=== PATIENT | female | born 1985 | race Caucasian/White ===

== ENCOUNTER 2017-02-28 17:48 | Inpatient (IN) | payer MEDICAID ==
[~2017-02-28] VITALS: Ht 165.1 cm; Wt 96.7 kg
--- NOTE | ~2017-02-28 | ER ---
PATIENT'S NAME: ROBERT [facility] AGE: 31 Y [address] ROOM: [place] [address] LOCATION: [facility] ADMIT DATE: 02/28/2017 ER/Outpatient Report DISCHARGE DATE: FAMILY PHYSICIAN: PHYSICIAN, NO ATTENDING PHYSICIAN: Gee Reina Time of Arrival: 1748 hours. Time of Evaluation: 1815 hours. IDENTIFICATION: A 31-year-old female. CHIEF COMPLAINT: Shortness of breath. HISTORY OF PRESENT ILLNESS: The patient is a 31-year-old female, G7, P4 at 35 weeks gestation with an EDC of 04/02/2017. She had 3 normal vaginal deliveries and 1 section. She was just recently hospitalized Thursday through at [facility] for a DVT right lower extremity, treated with subcu heparin in the hospital and then initiated on Lovenox Thursday morning outpatient 30 mg b.i.d. The patient had an episode of dizziness 30 minutes prior to arrival. She has had increasing shortness of breath the past 4 hours and has had chest pain intermittently x2 in the last hour. Currently, she denies any chest pain. PAST MEDICAL HISTORY: ALLERGIES: PENICILLIN. CURRENT MEDICATIONS: 1. Lovenox 30 mg subcu b.i.d. initiated Thursday. 2. vitamin daily. 3. Folic acid daily. 4. Benadryl 25 mg p.r.n. sleep. 5. Enbrel 50 mg subcu weekly. MEDICAL PROBLEMS: Rheumatoid arthritis. PRIOR SURGERIES: section, cholecystectomy. OB HISTORY: As noted above. PATIENT'S NAME: ROBERT [facility] AGE: 31 Y [address] ROOM: [place] [address] LOCATION: [facility] ADMIT DATE: 02/28/2017 ER/Outpatient Report DISCHARGE DATE: FAMILY PHYSICIAN: PHYSICIAN, NO ATTENDING PHYSICIAN: Gee Reina SOCIAL HISTORY: The patient lives here in [place]. She is currently unemployed. Tobacco use: Denies. Alcohol use: Denies. Drug use: Denies. REVIEW OF SYSTEMS: All systems reviewed and negative other than what is noted in the HPI. Other than she has had increasing pain in her right lower extremity. Baby is active. No bleeding or contractions. PHYSICAL EXAMINATION: VITAL SIGNS: Weight 96.7 kg. Blood pressure 146/73, pulse 99, respirations 16, temperature 98.5, saturations 96% on room air. heart tones 140. GENERAL: A 31-year-old female, in no acute distress. HEENT: Head: Normocephalic, atraumatic. Ears: TMs translucent both ears. Nose: Mucosa erythematous and congested. No drainage. No sinus tenderness. Mouth: No lesions. Pharynx benign. NECK: Supple. No lymphadenopathy. No nuchal rigidity. LUNGS: Clear to auscultation. HEART: Regular rate and rhythm. No murmur, rub, or gallop. ABDOMEN: Intrauterine at 35 weeks gestation, nontender. EXTREMITIES: She does have right lower extremity tenderness and swelling. No erythema. DIAGNOSTIC STUDIES: EKG sinus rhythm at 98 beats per minute. No acute ST elevation or depression. She does have a Q-wave in lead III and slight T-wave inversion in lead III. Hemoglobin 12.6, hematocrit 37.3, platelets 150, white count 10.4, INR 0.89, PTT 26. Sodium 141, potassium 3.6, chloride 109, CO2 20, BUN 11, creatinine 0.5, blood sugar 104, liver enzymes normal. EMERGENCY ROOM COURSE: CT PE protocol, I discussed this case with Dr. Reina, DIRECTOR OF HOUSING on-call to get his okay for a CT PE protocol. He was okay with this. CT PE protocol was suboptimal, cannot adequately evaluate for the possibility of pulmonary embolus. I again discussed with Dr. Reina and Dr. Friedman. Dr. Reina will provide admission with Dr. Friedman providing consultation for anticoagulation. Records were reviewed from [facility] dated 02/24/2017. IMPRESSION: 1. Right deep venous thrombosis. 2. Shortness of breath with possible pulmonary embolus. 3. Intrauterine at 35 weeks gestation. PATIENT'S NAME: CASSANDRA JONES [facility] AGE: 31 Y [address] ROOM: [address] [place], [place] [address] LOCATION: [facility] ADMIT DATE: 02/28/2017 ER/Outpatient Report DISCHARGE DATE: FAMILY PHYSICIAN: PHYSICIAN, NO ATTENDING PHYSICIAN: Gee Reina PLAN: The initial plan was for 1 mg/kg of subcu Lovenox to be given per Dr. Friedman. However, he did call back and cancel that order and requested that we wait for further orders from him. The patient was subsequently taken to the floor for Dr. Reina and did not receive Lovenox here in the emergency room at Dr. Friedman's request. Further anticoagulation dosing per Dr. Riena and Dr. Friedman. DEBRA HAYES MD CAR/kital /[id number] d: 03/01/17 0111 t: 03/01/17 0344, OUTPATIENT REPORT
--- NOTE | ~2017-02-28 | HP ---
[facility] 31 [facility] [address] ROOM: [place] [address] LOCATION: [facility] ADMIT DATE: 02/28/2017 History & Physical DISCHARGE DATE: FAMILY PHYSICIAN: WILLAM MOLINA ATTENDING PHYSICIAN: Asha Reina DATE OF SERVICE: CHIEF COMPLAINT: Right leg pain and shortness of breath, third trimester . HISTORY OF PRESENT ILLNESS: Cassandra Collins is a 31-year-old, single white female, 7 para 4 at 35 and 1/2 weeks gestational age who presented to the emergency room with complaints of shortness of breath. The patient had been admitted earlier this week at [facility] (EDC 02/24/2017 through 02/26/2017) with a DVT. She had right- sided leg pain and an ultrasound showed noncompressible popliteal vein consistent with right-sided DVT. She was initially treated with heparin and later switched to Lovenox, current dose is 30 mg b.i.d. She earlier today developed worsening right-sided pain and shortly before she presented to the emergency room, she developed shortness of breath. Upon arrival to the emergency room, her laboratory studies were satisfactory. Her oxygen saturation studies were also satisfactory. However, she has rather prominent pain in the right leg behind the knee in the general area previously diagnosed with DVT. She has the shortness of breath. Although, she does not have the tachycardia or the O2 saturation changes. A CT scan with PE protocol was inconclusive and discussion was carried forth with the patient regarding a V-Q scan for definitive diagnosis. PAST MEDICAL HISTORY: The patient is G7, P4. She has 2 first-trimester losses, 1 spontaneous miscarriage, 1 elective . She has 4 deliveries, 3 vaginal deliveries and the last delivery was by section. Newly diagnosed of rheumatoid arthritis. Past history of PTSD and anxiety. CURRENT MEDICATIONS: 1. Enbrel. 2. Lovenox. 3. vitamin. 4. Folic acid. 5. Benadryl. FAMILY HISTORY: Please see . [facility] 31 [facility] [address] ROOM: [place] [address] LOCATION: [facility] ADMIT DATE: 02/28/2017 History & Physical DISCHARGE DATE: FAMILY PHYSICIAN: PHYSICIAN, NO ATTENDING PHYSICIAN: Asha Reina SOCIAL HISTORY: Please see . The patient is a nonsmoker. No alcohol consumption. REVIEW OF SYSTEMS: Negative except for as stated above. PHYSICAL EXAMINATION: VITAL SIGNS: Afebrile. Vital signs stable, 208 pounds which is 94 kg. GENERAL: Well-developed, well-nourished white female who appears stated age. Some distress related to the pain in the right leg. Alert and oriented x3. HEENT: Grossly normal. LUNGS: Clear to auscultation. Breath sounds throughout the entire lung antony. HEART: Regular rate and rhythm without murmur. ABDOMEN: Obviously gravid. Positive bowel sounds. EXTREMITIES: Shows the left leg to be normal. The right leg to have pain in the right popliteal area. No swelling or discoloration of the distal extremity. NEUROLOGIC: Grossly normal. IMPRESSION: A 31-year-old multigravida female at 35 and 1/2 weeks gestational age with a worsening deep vein thrombosis and high probability of a PE. The CT with PE protocol was inconclusive. We discussed the followup of radiologic studies and confirmed the diagnosis. We are recommending the V-Q scans to definitively assign the diagnosis. PLAN: Proceed to V-Q scan, increase Lovenox to 90 mg twice daily (1 mg/kg b.i.d.). ASHA REINA MD DHW/modl /[id number] D: [id number] T: [id number] HISTORY & PHYSICAL
[2017-02-28 18:46] LABS: BASOPHIL % 0.3 %; EOSINOPHIL # 0.1 K/uL (0.0-0.5); EOSINOPHIL % 0.7 %; HEMATOCRIT 37.3 % (33.0-46.0); HEMOGLOBIN 12.6 g/dL (11.0-15.0); IMMATURE GRANULOCYTE # 0.1 K/uL (0.0-0.3); LYMPHOCYTE # 1.9 K/uL (0.8-4.0); LYMPHOCYTE % 18.6 %; MCH 30.4 pg (27.0-34.0); MCHC 33.8 gm/dL (32.0-36.5); MCV 89.9 fl (83.0-98.0); MONOCYTE # 0.6 K/uL (0.0-1.0); MONOCYTE % 5.3 %; MPV 11.7 fl (9.4-12.4); NEUTROPHIL # (ANC) 7.8 K/uL (1.8-7.8); NEUTROPHIL % 74.1 %; NRBC % 0 /100WBC (0-0.00); PLATELET COUNT 150 K/uL (150-450); RBC 4.15 M/uL (3.50-5.50); RDW-CV 13.8 % (11.9-14.6); WBC 10.4 K/uL (4.0-11.0)
[2017-02-28 18:58] LABS: INR - (THERAPEUTIC) 0.89 (0.92-1.07); PROTIME 9.3 SECONDS (9.8-11.4); PTT 26 SECONDS (25-32)
[2017-02-28 19:05] LABS: ALBUMIN 2.7 gm/dL (3.5-5.0); ALK PHOS 123 IU/L (33-138); ALT 40 IU/L (12-78); ANION GAP 15.6 (10.0-19.0); AST 31 IU/L (10-40); BLOOD UREA NITROGEN 11 mg/dL (6-24); CALCIUM 9.3 mg/dL (8.5-10.5); CHLORIDE 109 mMol/L (96-110); CO2 20 mMol/L (22-32); CREATININE 0.5 mg/dL (0.5-1.1); ESTIMATED GFR (MDRD EQUATION) > 60; POTASSIUM 3.6 mMol/L (3.7-5.1); SODIUM 141 mMol/L (135-145); TOTAL BILIRUBIN 0.3 mg/dL (0.0-1.5); TOTAL PROTEIN 6.8 g/dL (6.0-8.4)
[2017-02-28] MEDS ORDERED: PRENATAL 1+1)(P1 TAB PO (23:09)
[2017-02-28] MEDS ORDERED: LOVENOX 3030 MG/0.3 SUB-Q (23:09)
[2017-02-28] MEDS ORDERED: FOLIC ACID1 MG PO (23:10)
[2017-02-28] MEDS ORDERED: BENADRYL25 MG PO (23:11)
[2017-02-28] MEDS ORDERED: ENBREL50 MG/1 M1 SUB-Q (23:13)
[2017-03-01 05:13] LABS: BASOPHIL % 0.4 %; EOSINOPHIL # 0.1 K/uL (0.0-0.5); EOSINOPHIL % 1.2 %; HEMATOCRIT 33.8 % (33.0-46.0); HEMOGLOBIN 11.3 g/dL (11.0-15.0); IMMATURE GRANULOCYTE # 0.1 K/uL (0.0-0.3); IMMATURE GRANULOCYTE % 1.5 %; LYMPHOCYTE # 2.4 K/uL (0.8-4.0); MCH 30.5 pg (27.0-34.0); MCHC 33.4 gm/dL (32.0-36.5); MCV 91.1 fl (83.0-98.0); MONOCYTE # 0.6 K/uL (0.0-1.0); MONOCYTE % 6.4 %; MPV 11.7 fl (9.4-12.4); NEUTROPHIL # (ANC) 6.3 K/uL (1.8-7.8); NEUTROPHIL % 65.5 %; NRBC % 0 /100WBC (0-0.00); PLATELET COUNT 125 K/uL (150-450); RBC 3.71 M/uL (3.50-5.50); RDW-CV 13.8 % (11.9-14.6); WBC 9.6 K/uL (4.0-11.0)
[2017-03-01 05:23] LABS: PROTIME 9.4 SECONDS (9.8-11.4); PTT 29 SECONDS (25-32)
[2017-03-01 05:30] LABS: ALBUMIN 2.4 gm/dL (3.5-5.0); ALK PHOS 106 IU/L (33-138); ALT 36 IU/L (12-78); ANION GAP 16.4 (10.0-19.0); AST 32 IU/L (10-40); BLOOD UREA NITROGEN 10 mg/dL (6-24); CALCIUM 8.7 mg/dL (8.5-10.5); CHLORIDE 108 mMol/L (96-110); CO2 20 mMol/L (22-32); CREATININE 0.5 mg/dL (0.5-1.1); ESTIMATED GFR (MDRD EQUATION) > 60; POTASSIUM 3.4 mMol/L (3.7-5.1); SODIUM 141 mMol/L (135-145); TOTAL BILIRUBIN 0.4 mg/dL (0.0-1.5); TOTAL PROTEIN 5.9 g/dL (6.0-8.4)
--- NOTE | 2017-03-02 04:04 | NUR ---
Last VS: T: P: R: 16 BP: Pain rating: . Last pain med: NORCO Medicated at: 2100 Effective: YES FHT: Dilatation: Effacement %: Station: Significant event: PT RECEIVES 90 MG LOVENOX BID. TOOK SHOWER LAST NIGHT BEFORE HS TO ALLEVIATE LEG PAIN. TOOK 10 MG AMBIEN, PT SLEPT.
[2017-03-02] MEDS ORDERED: LOVENOX 10100 MG/1 M SUB-Q (07:23)
== END 2017-03-02 11:45 | disposition disaster alternative care site (69) | DRG 782 ==
LOC: GMED 17:48 → GOBS 21:47
PROVIDERS: Family Medicine; ADMIT Obstetrics & Gynecology
DX: O22.33 Deep phlebothrombosis in pregnancy, third trimester (principal); I82.431 Acute embolism and thrombosis of right popliteal vein; Z79.01 Long term (current) use of anticoagulants; Z3A.35 35 weeks gestation of pregnancy
CPT/HCPCS: A9540; G0463; J1650; J7040; Q9967

== ENCOUNTER 2017-03-25 10:14 | Emergency (ER) | payer MEDICAID ==
--- NOTE | ~2017-03-25 | ER ---
PATIENT'S NAME: ROBERT [facility] AGE: 31 Y [address] ROOM: [place] [address] LOCATION: [facility] ADMIT DATE: 03/25/2017 ER/Outpatient Report DISCHARGE DATE: 03/25/2017 FAMILY PHYSICIAN: PHYSICIAN, NO ATTENDING PHYSICIAN: Vanessa Obrien TIME OF ARRIVAL: 10:14. TIME SEEN: 10:57. IDENTIFICATION: A 31-year-old, G7, P4, at 39 weeks' gestation. The patient has had three normal vaginal deliveries and one section. She has seen Dr. Emerson in [place] and is scheduled for induction of on Thursday in 2 days. The patient was diagnosed with a DVT in the latter part of February at [facility]. She was then evaluated after that here at [facility]. Please refer to that dictation. She has been on Lovenox b.i.d. 90 mg and today had left hand swelling and pain, and pain between her shoulder blades and her right posterior chest, worse with any movement or breathing, no fall or injury. Baby is active. No vaginal bleeding. No leaking of fluid. ALLERGIES: PENICILLIN. CURRENT MEDICATIONS: 1. Tylenol 1000 mg p.r.n. 2. Lovenox 90 mg subcu b.i.d. 3. vitamin daily. 4. Enbrel 50 mg weekly. 5. Folic acid daily. MEDICAL PROBLEMS: 1. Rheumatoid arthritis. 2. Previous DVT. PRIOR SURGERIES: section and cholecystectomy. SOCIAL HISTORY: The patient lives here in [place]. Tobacco use: Denies. Alcohol use: Denies. Drug use: Denies. REVIEW OF SYSTEMS: [facility] 31 Y [address] ROOM: [place] [address] LOCATION: [facility] ADMIT DATE: 03/25/2017 ER/Outpatient Report DISCHARGE DATE: 03/25/2017 FAMILY PHYSICIAN: PHYSICIAN, WILLAM ATTENDING PHYSICIAN: Vanessa Obrien All systems reviewed and negative other than what is noted in the HPI. FAMILY HISTORY: No pertinent family history identified. PHYSICAL EXAMINATION: VITAL SIGNS: Height 5 feet 5 inches, weight 97.1 kg, blood pressure 137/70, pulse 96, respiratory rate 22, temp 98.2, and sats 97% on room air. GENERAL: A 31-year-old female, in no acute distress. HEENT: Head: Normocephalic, atraumatic. Ears: TMs translucent both ears. Nose: Mucosa pink, no lesions. Mouth: No lesions. Pharynx benign. NECK: Supple. No lymphadenopathy. LUNGS: Clear to auscultation. HEART: Regular rate and rhythm. ABDOMEN: Soft, nondistended. Intrauterine at 39 weeks gestation. heart tones 140s. MUSCULOSKELETAL: She is tender to palpation of the right trapezius and has pain with movement. She does feel short of breath because of the pain. I discussed this with Dr. Emerson, her bunk assembler, who was okay with proceeding with CT scan if necessary. The patient has some slight swelling of her left hand. Good distal pulses and sensation is intact. LABORATORIES: Hemoglobin 12.3, hematocrit 35.6, platelets 105, previous platelet count 136 on March 03, and white blood cell count 8.8. INR 0.90. Sodium 141, potassium 3.8, chloride 111, CO2 20, BUN 14, creatinine 0.6, and blood sugar 106. Liver enzymes normal. EMERGENCY DEPARTMENT COURSE: The patient was given [place] 5/325 two tablets here in the emergency room. Her pain improved from a [address] scan, PE protocol: No PE, no acute abnormalities per Radiology. IMPRESSION: 1. Musculoskeletal pain, right upper back. Ice or heat. No lifting. [place] 5/325 one to two p.o. q.4-6 hours p.r.n. pain, dispensed 10 with 0 refills. Tylenol for [id number] pain. 2. History of deep vein thrombosis, on anticoagulation, Lovenox as directed and ordered per Dr. Emerson. 3. Intrauterine at 39 weeks gestation. Scheduled for induction for , Lovenox adjustments as per Dr. Emerson. 4. Left arm pain and swelling. Venous Doppler obtained of the left upper extremity, no evidence of deep vein thrombosis. 5. Thrombocytopenia, platelet count 105. PATIENT'S NAME: CASSANDRA JONES [facility] AGE: 31 Y [address] ROOM: [place] [address] LOCATION: ED ADMIT DATE: 03/25/2017 ER/Outpatient Report DISCHARGE DATE: 03/25/2017 FAMILY PHYSICIAN: , WILLAM ATTENDING PHYSICIAN: Vanessa Obrien VANESSA OBRIEN MD CAR/modl /[id number] CC: Sergio Emerson MD d: 03/25/17 2304 t: 03/28/17 0819, OUTPATIENT REPORT
--- NOTE | ~2017-03-25 | ENPV ---
Vascular Upper Extremities Veins Procedure Demographics Patient Name CASSANDRA JONES Date of Study 03/25/2017 Patient Number [id number] Gender Female Date of 1985 Age 31 Visit Number [id number] Height Accession Number [id number] Weight Room Number BSA BMI Referring Micah Suarez Interpreting Chet Tomas MD Physician Physician Physician Ordering Physician Micah Mendez MD Sand Car Worker Machine Tailer Earle Hui, RVT Conclusions Summary No evidence of deep or superficial thrombus in the left upper extremity. Procedure Type of Study: Veins:Upper Extremities Veins, Upper Extremity Left. Indications for Study:Unilateral pain and Unilateral pain and edema. Appropriate Use Criteria:9 Patient Status:STAT. Study Location:ER. Technical Quality:Adequate visualization. - Preliminary reported to:Dr. Obrien in the ED @1200. Velocities are measured in cm/s ; Diameters are measured in cm Right UE Vein Measurements 2D and Doppler Measurements + + + + +--------+ + !Location !Visualized !Compressibility !Thrombosis !Signal !Reflux ! + + + + +--------+ + !SCV !Yes ! !None !Phasic !No ! + + + + +--------+ + Left UE Vein Measurements 2D and Doppler Measurements + + + + +--------+--------+ !Location !Visualized !Compressibility !Thrombosis !Signal !Reflux ! + + + + +--------+--------+ !IJV !Yes !Yes !None !Phasic !No ! + + + + +--------+--------+ !SCV !Yes ! !None !Phasic !No ! + + + + +--------+--------+ !Innominate !Yes ! !None !Phasic !No ! + + + + +--------+--------+ !Axillary !Yes ! !None !Phasic !No ! + + + + +--------+--------+ !Brachial !Yes !Yes !None !Phasic !No ! + + + + +--------+--------+ !Basilic !Yes !Yes !None !Phasic !No ! + + + + +--------+--------+ !Cephalic !Yes !Yes !None !Phasic !No ! + + + + +--------+--------+ Signature dtt: RAFAEL FRANCOIS dtd: 03/25/17 1125 Physician Self Edit
[~2017-03-25 10:14] MED LIST: BENADRYL25 MG PO; ENBREL50 MG/1 M1 SUB-Q; FOLIC ACID1 MG PO; LOVENOX 10100 MG/1 M SUB-Q; LOVENOX 3030 MG/0.3 SUB-Q; PRENATAL 1+1)(P1 TAB PO
[2017-03-25 11:22] LABS: BASOPHIL % 0.2 %; EOSINOPHIL % 0.5 %; HEMATOCRIT 35.6 % (33.0-46.0); HEMOGLOBIN 12.3 g/dL (11.0-15.0); IMMATURE GRANULOCYTE # 0.1 K/uL (0.0-0.3); IMMATURE GRANULOCYTE % 0.9 %; LYMPHOCYTE # 1.7 K/uL (0.8-4.0); LYMPHOCYTE % 19.2 %; MCH 31.4 pg (27.0-34.0); MCHC 34.6 gm/dL (32.0-36.5); MCV 90.8 fl (83.0-98.0); MONOCYTE # 0.5 K/uL (0.0-1.0); MONOCYTE % 5.3 %; MPV 12.9 fl (9.4-12.4); NEUTROPHIL # (ANC) 6.5 K/uL (1.8-7.8); NEUTROPHIL % 73.9 %; NRBC % 0 /100WBC (0-0.00); RBC 3.92 M/uL (3.50-5.50); RDW-CV 14.4 % (11.9-14.6); WBC 8.8 K/uL (4.0-11.0)
[2017-03-25 11:23] LABS: PLATELET COUNT 105 K/uL (150-450)
[2017-03-25 11:35] LABS: PROTIME 9.4 SECONDS (9.8-11.4); PTT 30 SECONDS (25-32)
[2017-03-25 11:40] LABS: ALBUMIN 2.7 gm/dL (3.5-5.0); ALK PHOS 134 IU/L (33-138); ALT 23 IU/L (12-78); ANION GAP 13.8 (10.0-19.0); AST 24 IU/L (10-40); BLOOD UREA NITROGEN 14 mg/dL (6-24); CHLORIDE 111 mMol/L (96-110); CO2 20 mMol/L (22-32); CREATININE 0.6 mg/dL (0.5-1.1); ESTIMATED GFR (MDRD EQUATION) > 60; POTASSIUM 3.8 mMol/L (3.7-5.1); SODIUM 141 mMol/L (135-145); TOTAL PROTEIN 6.3 g/dL (6.0-8.4)
[2017-03-25 11:43] LABS: TOTAL BILIRUBIN 0.2 mg/dL (0.0-1.5)
== END 2017-03-25 12:59 | disposition disaster alternative care site (69) ==
LOC: GMED 10:14
PROVIDERS: Family Medicine
DX: O99.89 Other specified diseases and conditions complicating pregnancy, childbirth and the puerperium (principal); M54.6 Pain in thoracic spine; M79.642 Pain in left hand; M06.9 Rheumatoid arthritis, unspecified; O99.113 Other diseases of the blood and blood-forming organs and certain disorders involving the immune mechanism complicating pregnancy, third trimester; Z3A.39 39 weeks gestation of pregnancy; Z90.49 Acquired absence of other specified parts of digestive tract; Z88.0 Allergy status to penicillin; Z79.899 Other long term (current) drug therapy

== ENCOUNTER 2017-04-03 22:52 | Emergency (ER) | payer MEDICAID ==
--- NOTE | ~2017-04-03 | ER ---
PATIENT'S NAME: CASSANDRA JNOES [facility] AGE: 31 Y [address] ROOM: [place], [place] [address] LOCATION: ED ADMIT DATE: 04/03/2017 ER/Outpatient Report DISCHARGE DATE: 04/03/2017 FAMILY PHYSICIAN: Brayden Cruz MD ATTENDING PHYSICIAN: Boris Ortiz CHIEF COMPLAINT: Headache. HISTORY OF PRESENT ILLNESS: This patient had a after failed on 03/27/2017. She developed a spinal headache on that date and then was given a blood patch on 03/31/2017 and she was discharged on 04/01/2017. The patient has had a DVT diagnosed approximately 4 weeks prior to delivery and has been on Lovenox. The patient has also had hypertension since approximately 4 weeks prior to delivery. She has at home being seen by Home Health. Home Health was there today and recommended she contact her doctor due to headache. The patient has had pain in the left-side of her neck since delivery and that pain has not gotten any better. This headache that she felt was present when she had a spinal headache and did resolve with blood patch. This afternoon, she has began to develop a frontal headache, which she feels is more like her spinal headache. She has had no nausea, vomiting, her bowels are working well. She has had no complaints of any increase in incisional discomfort. She states her vaginal flow is slowing. occurred in [place] with Dr. Emerson, her primary care provider is Dr. Brayden Cruz. The patient reports she has been drinking a lot of water. She also reports that DVT is gone, but she will need to be on Lovenox for 3 months. PAST MEDICAL HISTORY: DVT, rheumatoid arthritis, and x2. ALLERGIES: PENICILLIN. HOME MEDICATIONS: 1. [place] p.r.n. 2. Lovenox 90 mg twice daily. 3. Enbrel 50 mg subcu once a week. REVIEW OF SYSTEMS: The patient has headache as previously mentioned. She has no change in her vision. No lightheadedness. No dizziness. She denies any recent head injury. The patient has neck pain also as previously mentioned primarily on the left-side of her neck. No trauma. She denies any shortness of breath or cough. She denies any chest pain or palpitations. She has no nausea, PATIENT'S NAME: CASSANDRA JONES [facility] AGE: 31 Y [address] ROOM: [place], [place] [address] LOCATION: [facility] ADMIT DATE: 04/03/2017 ER/Outpatient Report DISCHARGE DATE: 04/03/2017 FAMILY PHYSICIAN: Brayden Cruz MD ATTENDING PHYSICIAN: Boris Ortiz vomiting, or diarrhea. She states her bowels have been moving since the C- section. She denies any urinary symptoms. Musculoskeletal, no new complaints with the exception of neck pain that has actually been there since the day of delivery. PHYSICAL EXAMINATION: VITAL SIGNS: Temperature 98.1, pulse of 87, respiratory rate of 18, blood pressure 153/67, and oxygen saturation 98% on room air. GENERAL APPEARANCE: Alert, oriented, pale, warm, dry, appears uncomfortable. HEENT: Head is normocephalic, atraumatic. Eyes: PERRL. EOMs are intact. Ears: TMs are pearly mcekon with light reflex bilaterally. Nose: Turbinates are pink without rhinorrhea. Pharynx is without edema, erythema, or exudate. Uvula is midline. Mucous membranes are moist. NECK: Supple. No lymphadenopathy. There is no tenderness over the cervical spine. There is tenderness to the paraspinous musculature on the left in particular she is exquisitely tender over the base of her skull on the left with palpation. LUNGS: Clear to anterior-posterior auscultation. No adventitious lung sounds. Respiratory effort is normal. HEART: Rate is regular. Normal S1, S2. No lifts, thrills, or murmurs. ABDOMEN: Soft with bowel sounds present in all 4 quadrants. Incision is well- healed. Steri-Strips are in place, not well healed, is without erythema or discharge. EXTREMITIES: With trace of edema. Cap refill less than 3 seconds. Peripheral pulses 2+. Cranial nerves 2 through 12 are intact. Motor strength is 5/5 in the upper and lower extremities. There is no nuchal rigidity. IMPRESSION AND ASSESSMENT: Musculoskeletal headache, possibility of spinal headache. EMERGENCY DEPARTMENT COURSE: I visited with the patient for a long time about how this could be a spinal headache or return of a spinal headache; however, there is definitely musculoskeletal pain. DISPOSITION/PLAN: I am going to have the patient try Flexeril and ice and send her home with a soft cervical collar to wear when she is up and about to see if that helps with her discomfort. She has an appointment to follow up with Dr. Emerson on the . Home Health will visit again on Thursday. She will call Home Health. If she has any concerns, she can also call Dr. Emerosn. She also knows she can return to the emergency room as needed. She is to continue drinking plenty of fluid, which she says she has been doing. The patient is encouraged to pump and dump her breast milk while taking Flexeril, which she has also been doing, and has not been very successful with due to all the PATIENT'S NAME: CASSANDRA JONES [facility] AGE: 31 Y [address] ROOM: [place], [place] [address] LOCATION: [facility] ADMIT DATE: 04/03/2017 ER/Outpatient Report DISCHARGE DATE: 04/03/2017 FAMILY PHYSICIAN: Brayden Cruz MD ATTENDING PHYSICIAN: Boris Ortiz complications with her delivery. I did encourage her to continue trying to pump and breastfeed in the future when she is feeling better. PAUL CERVANTES, CYNTHIA FOR BORIS ORTIZ MD DP/modl /[id number] d: 04/04/17 0403 t: 04/13/17 1419, OUTPATIENT REPORT
== END 2017-04-03 23:38 | disposition disaster alternative care site (69) ==
LOC: GMED 22:52
DX: O99.89 Other specified diseases and conditions complicating pregnancy, childbirth and the puerperium (principal); R51 Headache; M06.9 Rheumatoid arthritis, unspecified; Z79.01 Long term (current) use of anticoagulants; Z86.718 Personal history of other venous thrombosis and embolism; Z88.0 Allergy status to penicillin; Z79.899 Other long term (current) drug therapy